=== PATIENT | female | born 1965 ===

== ENCOUNTER 2017-03-16 15:59 | Day surgery (SDC) | payer OTHER ==
[2017-03-15 09:44] VITALS: BMI 21.4
--- NOTE | 2017-03-16 16:48 | CP.SDSHP ---
Same Day Surgery H & P - History Proposed Procedure: ORIF right distal radius Pre-Op Diagnosis: Right distal radius fx - Previous Medical/Surgical History Comments: hypercholesterolemia - Allergies Allergies: Allergies No Known Allergies Allergy (Verified 03/15/17 09:44) - Physical Exam Vital Signs: Vital Signs 03/16/17 16:35 Temperature 97.9 F Pulse Rate 66 Respiratory 18 Rate Blood Pressure 150/73 O2 Sat by Pulse 100 Oximetry Mental Status: Alert & Oriented x3 Heart: WNL Lungs: WNL GI: WNL - {Optional Preform as Required} Ortho: Other (complains of tingling to right thumb distal phalanx and right index finger volarly) Other Pertinent Findings: [place] [employer]UD [employer]STER/MISTRESS patient report reviewed, patient had percocet rx on 03/13 #12. Patient counseled on the risks of addiction, physical or psychological dependence, and overdose associated with opioid drugs and the danger of taking opioid drugs with alcohol and other central nervous system depressants, and cautioned patient on storage and disposal. - Impression Impression: 51F RHD with displaced right distal radius fx for ORIF Pt. Evaluated Today:Candidate for Anesthesia & Procedure: Yes - Date & Time Date: 03/16/17 Time: 16:47 Short Stay Discharge - Short Stay Discharge Admitting Diagnosis/Reason for Visit: RIGHT DISTAL RADIUS / ULNA FRACTURE Disposition: HOME/ ROUTINE Past Patient History - Past Medical History & Family History Past Medical History?: Yes - Past Social History Smoking Status: Never Smoked - CARDIAC Hx Hypercholesterolemia: Yes (NO MEDS NEDDED PER PT) - PULMONARY Hx Respiratory Disorders: No - NEUROLOGICAL Hx Neurological Disorder: No - HEENT Hx HEENT Problems: No - RENAL Hx Chronic Kidney Disease: No - ENDOCRINE/METABOLIC Hx Endocrine Disorders: No - HEMATOLOGICAL/ONCOLOGICAL Hx Blood Disorders: No - INTEGUMENTARY Hx Dermatological Problems: No - MUSCULOSKELETAL/RHEUMATOLOGICAL Hx Musculoskeletal Disorders: No - GASTROINTESTINAL Hx Gastrointestinal Disorders: No - GENITOURINARY/GYNECOLOGICAL Hx Genitourinary Disorders: No - PSYCHIATRIC Hx Psychophysiologic Disorder: No - SURGICAL HISTORY Hx Surgeries: Yes Hx Section: Yes - ANESTHESIA Hx Anesthesia: Yes (EPIDURAL ONLY) Hx Anesthesia Reactions: No Hx Malignant Hyperthermia: No Has any member of the family had a problem w/ anesthesia?: No
[2017-03-16] MEDS ORDERED: Bacitracin 50,000 UNIT in Sodium Chloride 0.9% Irrig 1,000 ML IR SCH (17:00)
[2017-03-16] MEDS ORDERED: Bupivacaine 0.5% Inj(30mL) ONE (17:27)
[2017-03-16] MEDS ORDERED: Midazolam 2 MG/2 ML VIAL ONE (17:28)
[2017-03-16] MEDS ORDERED: ceFAZolin IV 2 gm in Dextrose 1 GM/50 ML BAG IVPB ONE (17:28)
[2017-03-16] MEDS ORDERED: Propofol 10 mg/ml Inj (20 ML) ONE (17:29)
[2017-03-16] MEDS ORDERED: Lactated Ringer's 1,000 ML IV ONE ×2 (17:45→19:52)
[2017-03-16] MEDS ORDERED: Neostigmine Methylsulfate 3mg/3ml Syringe IV ONE (19:49)
[2017-03-16] MEDS ORDERED: Oxycodone/Acetaminophen 5/325 mg Tab PO PRN (20:25)
--- NOTE | 2017-03-16 20:25 | PCM.SURG1 ---
Surgeon's Initial Post Op Note - Surgeon's Notes Surgeon: Donnie Mcknight MD Bottoming Room Supervisor: Monster Castillo PA-C Type of Anesthesia: General Endo Anesthesia Administered By: Dr. Rodriguez Pre-Operative Diagnosis: Right distal radius fx, ulnar styloid fx Operative Findings: tourniquet 111min @250mmHg Post-Operative Diagnosis: smae Operation Performed: ORIF right distal radius fx Specimen/Specimens Removed: none Estimated Blood Loss: EBL {In ML}: 10 Blood Products Given: N/A Drains Used: No Drains Post-Op Condition: Fair Date of Surgery/Procedure: 03/16/17 Time of Surgery/Procedure: 20:25
[2017-03-16] MEDS ORDERED: HYDROmorphone 0.5 mg/0.5 ml ISec ONE (20:34)
[2017-03-16] MEDS: HYDROmorphone 0.5 mg/0.5 ml ISec IVP PRN ×2 (20:35→21:35)
[2017-03-16 22:29] VITALS: BP 131/53; PULSE 65; RESP 10; TEMP 97.3; O2SAT 97
--- NOTE | 2017-03-17 01:03 | OP ---
PROCEDURE DATE: 03/16/2017 PREOPERATIVE DIAGNOSIS: Right distal radius and ulnar fractures. POSTOPERATIVE DIAGNOSIS: Right distal radius and ulnar fractures. PROCEDURE: Open reduction and internal fixation of right distal radius fracture. SURGEON: Tyrone Mcknight MD LOGGING CREW FOREMAN: Jack Castillo PA-C The physician nurse assistant, Ms. Castillo, was scrubbed and present throughout the entire case and assisted fracture reduction, insertion of the hardware as well as wound closure. IMPLANT: Synthes distal radius volar locking plate. INDICATIONS FOR PROCEDURE: This is a 51-year-old female who presents status post right wrist injury with complete right wrist pain as well as tingling in her fingers. Clinical examination was consistent with a displaced distal radius and ulnar fracture, tenderness over the distal radius and ulnar as well as paraesthesia in the median nerve distribution. Recommendation was open reduction and internal fixation of the fracture. The risks, benefits and alternatives of the procedures were discussed with the patient including the possibility of nerve damage, hardware failure, nonunion and malunion as well as infection and informed consent was obtained. DESCRIPTION OF PROCEDURE: After the surgical site was finally verified in the preoperative holding area, the patient was taken to the operating room and placed supine on the operating table. After administration of general anesthesia, the patient received 2 g of Ancef IV. Tourniquet was placed about the right arm. Care was taken to make sure all bony prominences and nerves were well padded and protected. The right upper extremity was prepped and draped in the usual sterile fashion. Right upper extremity was exsanguinated and the tourniquet was inflated. Approximately a 6-cm longitudinal incision was made over the volar aspect of the distal radius, Soft tissues were dissected bluntly down to the fracture site. Once the fracture site was exposed, all fracture hematoma was evacuated and the wound was copiously irrigated with antibiotic saline solution. At this point, the patient was noted to have some significant comminution and an open reduction was performed. The reduction was provisionally held using K-wires. Reduction was checked using the image intensifier in both AP and lateral planes, satisfied with the reduction. Synthes volar locking plate was placed and held in place with K-wires. Again, the position of the plate was confirmed using the image intensifier. At this point, the fracture was then fixed using first with a cortical screw on the shaft and a cortical screw in the distal fragment, 3 additional locking screws with endplates in the distal fragment making sure the position of the screws was in good position using the C-arm. At this point, the cortex screw that was initially placed was exchanged for a locking screw. Finally, 2 additional locking screws were placed in the shaft. At this point, all the K-wires were removed and our reduction was checked using the image intensifier, satisfied that the fracture was well aligned and the hardware in good position. views were taken showing that the DRUJ was stable. At this point, her wound was copiously irrigated and closed in a layered fashion. A sterile dressing was applied and a splint was placed. The patient was awakened from the procedure, taken to the recovery room in stable condition Tyrone Mcknight MD
--- NOTE | 2017-03-17 08:03 | RAD ---
PROCEDURE: Right Wrist Radiographs. HISTORY: pt in pacu s/p wrist orif COMPARISON: Comparison is made to the previous fluoroscopic study dated 03/16/2017 FINDINGS: BONES: The right wrist and forearm seen in cast which limits the evaluation for fine details. The patient is status post internal fixation bile metallic plate and screws at the distal right radius. Again seen is slightly displaced fracture at the styloid of the distal ulnar bone. JOINTS: Normal. No dislocation. SOFT TISSUES: Normal. OTHER FINDINGS: None. IMPRESSION: The right wrist and forearm seen in cast. Status post internal fixation at the distal right radius bone.
--- NOTE | 2017-03-17 10:16 | RAD ---
PROCEDURE: Intraoperative Fluoroscopy. . HISTORY: RIGHT DISTAL RADIUS FX FINDINGS: Fluoroscopic assistance was provided. 101.5 seconds fluoroscopy time utilized during this procedure. Radiation dose = 1.08 mGy. Please refer to the operative report for additional details
== END 2017-03-16 22:25 | disposition home or self-care (01) ==
LOC: C.OPSURG 15:59
PROVIDERS: ATTEND Orthopaedic Surgery
DX: S52.501A Unspecified fracture of the lower end of right radius, initial encounter for closed fracture (principal); S52.601A Unspecified fracture of lower end of right ulna, initial encounter for closed fracture; E78.00 Pure hypercholesterolemia, unspecified; X58.XXXA Exposure to other specified factors, initial encounter
CPT/HCPCS: 25607; 73110; C1713; J0690; J1170; J2001; J2250; J2405; J2704; J2710; J3010; J7120